=== PATIENT | female | born 1945 | race African-American/Black ===

== ENCOUNTER → 2016-11-04 | Outpatient (CLI) | payer BC, OTHER | LOC: ULTRA 10:20 | DX: M79.89 Other specified soft tissue disorders (principal) ==

== ENCOUNTER → 2020-03-07 | Outpatient (CLI) | payer BC, OTHER | LOC: SJCVCIMAG 02-28 14:39 | PROVIDERS: ATTEND Internal Medicine | DX: I65.23 Occlusion and stenosis of bilateral carotid arteries (principal); I35.8 Other nonrheumatic aortic valve disorders; R00.0 Tachycardia, unspecified; I10 Essential (primary) hypertension; E78.5 Hyperlipidemia, unspecified; I25.10 Atherosclerotic heart disease of native coronary artery without angina pectoris; I25.84 Coronary atherosclerosis due to calcified coronary lesion; Z78.0 Asymptomatic menopausal state ==